=== PATIENT | male | born 1990 | race Caucasian/White ===

== ENCOUNTER 2023-11-17 10:32 | Outpatient (AMB) | payer OTHER, SELFPAY ==
[2023-11-17 10:33] VITALS: BP 116/78; PULSE 62; O2SAT 98; BMI 30.5
--- NOTE | 2023-11-17 10:33 | A.OFFPC_ITS ---
Vital Signs 11/17/23 10:33 Height 6 ft Weight 225 lb BMI 30.5 BP 116/78 Blood Pressure Location Rt brachial Position Sitting Pulse 62 Pulse Source Pulse Oximeter Pulse Oximetry (%) 98 Oxygen Delivery Method Room Air Intake Visit Reasons: PE Intake Note: pt here for annual PE. Allergies No Known Allergies Allergy (Verified 11/17/23 10:48) Medication List - Last Reconciled 11/17/23 by LALA Majano finasteride 5 mg PO DAILY minoxidil 1.25 mg PO DAILY sildenafil (Viagra) 25 mg PO DAILY PRN Tobacco use date assessed: 11/17/23 Dental Screening Dental Screen Date: 11/17/23 Did you have a dental visit in the last 12 months?: Yes Did you have a dental problem in the last 6 months where you did not have access to dental care?: No Was dental information given to patient?: Patient has dentist HPI HPI Comments History of Present Illness Details Patient is a 33-year-old male in today for a physical exam I am meeting him for the 1st time today. Will order fasting labs. Tdap is up-to-date. Has a past medical history significant for Atypical skin moles-has establish care with Dermatology. [facility] Surgical History History of removal of cyst Family History Father No problems noted. Mother No problems noted. Paternal Grandfather No problems noted. 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 00235 - PHQ-9 Billing: Patient declined-do not bill Source: Developed by Drs. Hugo Mclean, Fiorella Adams, Jay Cid and colleagues, with an educational kristofer from [employer]. AUDIT C Alcohol Use Questionnaire (AUDIT-C) 1. How often do you have a drink containing alcohol?: 2-4 times a month 2. How many drinks containing alcohol do you have on a typical day when you are drinking?: 1 or 2 3. How often do you have six or more drinks on one occasion?: Never Total Score: 2 LELA-7 AMB Questionnaire LELA-7 Assessment Billing LELA-7 Assessment Tool: pt declined-do not bill Review of Systems Const All systems reviewed & are unremarkable except as noted in HPI and below Physical exam (Primary Care) Vital Signs: Last Vital Signs Pulse 62 11/17/23 10:33 BP 116/78 11/17/23 10:33 Pulse Ox 98 11/17/23 10:33 Oxygen Delivery Method Room Air 11/17/23 10:33 Care Plan Goal for BP management: Blood pressure is controlled. BMI result Body Mass Index 30.5 Tobacco/Smoking Status: Tobacco use Status Tobacco use date assessed 11/17/23 11/17/23 10:42 Patient Tobacco Use Status Never used Tobacco 11/17/23 10:42 e-Cigarette/Vaping Use Never Used 11/17/23 10:42 Const Other: Appearance: Alert.? Oriented X3.? No acute distress.? Head: Normocephalic, atraumatic, no step-offs or deformities Eyes: Pupils equal, round and reactive to light.? ENT: Pharynx normal.?Full ROM. Neck: Normal inspection.? Neck supple.? CVS: Normal heart rate and rhythm.? Pulses normal.? Respiratory: No respiratory distress.? Breath sounds normal.? Abdomen: Soft and nontender.? : Testes normal. No hernia. Skin: Skin warm and dry.? Normal skin color.? Normal skin turgor.? Extremities: No lower extremity edema. 5/5 strength to bilateral upper and lower extremities Back: No midline tenderness, no C-spine tenderness, full range of motion, no CVA tenderness bilaterally Neuro: Oriented X 3.? No motor deficit.? No sensory deficit. CN 2-12 intact Assessment and Plan Assessment & Plan (1) Physical exam: Comment: Will draw fasting labs. Code(s): Z00.00 - Encounter for general adult medical examination without abnormal findings (2) Multiple atypical skin moles: Comment: Patient has [facility] care [facility] for skin checks. Code(s): D22.9 - Melanocytic nevi, unspecified (3) Hair loss: Comment: Patient using online service for medication for hair loss including finasteride, sildenafil, and minoxadil. Code(s): L65.9 - Nonscarring hair loss, unspecified Plan: draw labs Plan Follow-up 1 year physical exam Orders: Orders Vitamin B12 Today Z13.21 - Encounter for screening for nutritional disorder Comprehensive Met. Panel Today Z91.89 - Other specified personal risk factors, not elsewhere classified Complete Blood Count Auto Diff Today Z13.0 - Encounter for screening for diseases of the blood and blood-forming organs and certain disorders involving the immune mechanism Vitamin D 25-OH (D2 and D3) Today Z13.21 - Encounter for screening for nutritional disorder Vitamin B6 Today Z13.21 - Encounter for screening for nutritional disorder UA CC w/rflx Micro + Cult Today Z13.89 - Encounter for screening for other disorder TSH reflex Free T4 Today Z13.29 - Encounter for screening for other suspected endocrine disorder Lipid Panel Today Z13.220 - Encounter for screening for lipoid disorders Coding Level of Care Code Est Pt Prev Care 18-39y(29789) Diagnoses Physical exam Z00.00 Multiple atypical skin moles D22.9 Hair loss L65.9 Time Spent (min) 24
== END 2023-11-17 11:05 | disposition home or self-care (01) ==
PROVIDERS: PCP Nurse Practitioner Primary Care; Visit Provider Nurse Practitioner Primary Care
DX: Z00.00 Encounter for general adult medical examination without abnormal findings (principal); D22.9 Melanocytic nevi, unspecified; L65.9 Nonscarring hair loss, unspecified
CPT/HCPCS: 99395

== ENCOUNTER 2023-11-20 08:04 | Outpatient (REF) | payer OTHER, SELFPAY ==
[2023-11-20 08:22] LABS: MANUAL DIFF FLAG NO
[2023-11-20 08:30] LABS: Basophils Percent Auto 0.4 % (0-2); Eosinophils Absolute Auto 0.1 X10*3/uL (0.0-0.4); Eosinophils Percent Auto 2.4 % (0-4); Hematocrit 43.2 % (42.0-52.0); Imm Gran Abs Auto 0.01 X10*3/uL (0.00-0.03); Imm Gran Pct Auto 0.2 % (0.0-0.4); Lymphocytes Absolute Auto 1.7 X10*3/uL (1.2-4.9); Lymphocytes Percent Auto 30.9 % (20-40); Mean Corpuscular HGB Conc 34.7 g/dl (31.0-36.0); Mean Corpuscular Hemoglobin 31.4 pg (27.0-33.0); Mean Corpuscular Volume 90.6 fL (80.0-98.0); Mean Platelet Volume 8.9 fL (9.4-12.4); Monocytes Absolute Auto 0.4 X10*3/uL (0.1-1.2); Monocytes Percent Auto 7.7 % (2-11); Neutrophils Absolute Auto 3.2 x10*3/uL (2.0-8.3); Neutrophils Percent Auto 58.4 % (45-73); Platelet Count 198 X10*3/uL (160-400); Red Blood Count 4.77 X10*6/uL (4.60-5.80); Red Cell Distribution Width 12.7 % (11.0-16.0); White Blood Count 5.4 X10*3/uL (4.8-10.8)
[2023-11-20 09:24] LABS: Alanine Aminotransferase 32 U/L (0-40); Albumin Level 4.7 g/dL (3.5-5.0); Alkaline Phosphatase 70 U/L (39-117); Anion Gap 12 (12-20); Aspartate Amino Transferase 16 U/L (5-37); Bilirubin Total 0.3 mg/dL (0.0-1.0); Blood Urea Nitrogen 17 mg/dL (9-16); Calcium 9.5 mg/dL (8.4-10.2); Carbon Dioxide 25 mmol/L (22-29); Chloride 108 mmol/L (96-108); Cholesterol 199 mg/dL (<200); Estimated Glomerular Filt Rate > 60; Glucose Random 97 mg/dL (60-115); HDL Cholesterol 55 mg/dL (>40); LDL Cholesterol Calculated 130 mg/dL (<100); Potassium 4.4 mmol/L (3.3-5.1); Sodium 141 mmol/L (135-145); Total Protein 7.6 g/dL (6.5-8.0); Triglycerides 71 mg/dL (<150)
[2023-11-20 09:28] LABS: TSH reflex Free T4 1.54 uIU/mL (0.32-4.0)
[2023-11-20 09:41] LABS: Appearance Urine Clear; Color Urine Yellow; Glucose Urine UA Negative (Negative); Leukocyte Esterase Urine Negative (Negative); Nitrite Urine Negative (Negative); PH 5.5 (5.0-9.0); Specific Gravity - Urine >= 1.030 (1.005-1.025); Urine Blood Negative (Negative); Urine Ketones Negative (Negative); Urine Protein Negative (Neg-Trace)
[2023-11-20 09:49] LABS: Vitamin B12 344 pg/mL (200-900)
[2023-11-25 12:08] LABS: Vitamin D 25-OH, D2 <4 ng/mL; Vitamin D 25-OH, D3 20 ng/mL; Vitamin D 25-OH, Total 20 ng/mL (30-100)
[2023-11-27 14:33] LABS: Vitamin B6 26.5 ng/mL (2.1-21.7)
== END 2023-11-20 08:05 | disposition home or self-care (01) ==
LOC: HO.LAB 08:04
PROVIDERS: PCP Nurse Practitioner Family; Visit Provider Nurse Practitioner Primary Care
DX: Z13.21 Encounter for screening for nutritional disorder (principal); Z91.89 Other specified personal risk factors, not elsewhere classified; Z13.220 Encounter for screening for lipoid disorders; Z13.0 Encounter for screening for diseases of the blood and blood-forming organs and certain disorders involving the immune mechanism; Z13.89 Encounter for screening for other disorder; Z13.29 Encounter for screening for other suspected endocrine disorder
CPT/HCPCS: 36415; 80053; 80061; 81003; 82306; 82607; 84207; 84443; 85025

== ENCOUNTER 2024-01-13 11:23 | Outpatient (AMB) | payer OTHER, SELFPAY ==
--- NOTE | 2024-01-13 11:29 | MHC.OFFWIV ---
Intake Vital Signs 01/13/24 11:30 Height 6 ft Weight 225 lb BMI 30.5 BP 122/78 Blood Pressure Location Lt brachial Position Standing Pulse 74 Pulse Source Pulse Oximeter Temp 98.3 F Temp Source Oral Pulse Oximetry (%) 98 Oxygen Delivery Method Room Air Intake Visit Reasons: possible slipped disk Intake Note: pt c/o back pain. Unknown cause. Started yesterday morning Patient Tobacco Use Status: Never used Tobacco Allergies No Known Allergies Allergy (Verified 01/13/24 11:29) Do you need a note to return to daycare/school/sports/work: No HPI possible slipped disk HPI Details This note is constructed using voice recognition software. While every effort has been made to ensure accuracy, bridge toll collector errors may have been included. The patient is a 33 year old male who presents to the clinic today with back pain. Reports the pain to be a crossed his lumbar region making it difficult for him to sit or even want to walk. He notes that he has had intermittent low back pain for several years, but it typically resolves with the use of Tylenol at home, which is different from this as it has not resolved despite use of Tylenol for the past day. He denies any new injury, or different use or overuse of the area. He has never had surgery to the area. Denies loss of control of bowel or bladder. Initially had pain going down his right leg when he was in the shower yesterday and in his lumbar region, but that pain down the right leg seemed to resolve on its own. He denies numbness and tingling. [facility] Surgical History History of removal of cyst Family History Father No problems noted. Mother No problems noted. Paternal Grandfather No problems noted. 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[employer] Current occupational exposures/hazards: No Cognitive needs: No Hearing needs: No Vision needs: Yes Review of Systems Const All systems reviewed & are unremarkable except as noted in HPI and below Physical Exam Vital Signs: Last Vital Signs Temp 98.3 F 01/13/24 11:30 Pulse 74 01/13/24 11:30 BP 122/78 01/13/24 11:30 Pulse Ox 98 01/13/24 11:30 Oxygen Delivery Method Room Air 01/13/24 11:30 BMI result Body Mass Index 30.5 Const General: cooperative, healthy appearing, comfortable, no acute distress and alert Orientation/consciousness: patient oriented x3 Limitations: no limitations Resp Effort & Inspection: normal respiratory effort and able to speak in complete sentences Auscultation: clear to auscultation bilaterally Cardio Jugular venous distension: no JVD Palpation: normal PMI Rate: regular rate Heart sounds: S1 normal heart sound present, S2 normal heart sound present, no click, no gallops, no murmurs and no rubs General: Yes no CVA tenderness Back/Spine/Pelvis Other: Tender to palpation along entire bilateral lumbar region. Increased muscle bulging over right lumbar region. Reduced lateral rotation due to pain and forward bend due to pain. Positive SLR on right, negative well SLR. Intact distal neurovascular exam. Back: no CVA tenderness Skin General skin exam: no rashes or lesions noted, elasticity normal and turgor normal Neuro General: patient oriented x3 Extrem General: Yes normal to inspection, Yes full ROM, Yes capillary refill normal and Yes normal exam except as noted Psych Appearance: grossly normal Mental Status: mental status grossly normal Speech and movement: Normal speech and movement present Affect: normal affect Assessment & Plan Assessment & Plan (1) Lumbar strain: Code(s): S39.012A - Strain of muscle, fascia and tendon of lower back, initial encounter Qualifiers: Encounter type: initial encounter Qualified Code(s): S39.012A - Strain of muscle, fascia and tendon of lower back, initial encounter Plan: History and physical examination consistent with lumbar strain. Advised use of NSAIDs and muscle relaxers as well as muscle rubs to help reduce the pain. Home exercise program suggested or sciatica given positive SLR. Prescribed ibuprofen and cyclobenzaprine as discussed in visit today. Advised patient to avoid use of muscle relaxer during the daytime or when planning to drive. Advised patient to follow up with primary care provider with worsening or failure to resolve. Discussed how he may benefit from physical therapy with ongoing symptoms, however it is unlikely that he will need that at this time given the acute nature of the injury. Plan See above for full details and plan. Medications: New ibuprofen 800 mg PO Q8H 3 days PRN 9 tabs 0RF pain cyclobenzaprine 10 mg PO BEDTIME 3 days PRN 3 tabs 0RF muscle spasm Coding Level of Care Code Est Pt Level 3 (80546) Diagnoses Strain of lumbar region, initial encounter S39.012A Encounter type: initial encounter
[2024-01-13 11:30] VITALS: BP 122/78; PULSE 74; TEMP 36.8; O2SAT 98; BMI 30.5
== END 2024-01-13 12:09 | disposition home or self-care (01) ==
PROVIDERS: PCP Nurse Practitioner Family; Visit Provider Registered Nurse
DX: S39.012A Strain of muscle, fascia and tendon of lower back, initial encounter (principal)
CPT/HCPCS: 99213

== ENCOUNTER 2024-12-19 08:25 | Outpatient (AMB) | payer OTHER, SELFPAY ==
[2024-12-19 08:32] VITALS: BP 118/78; PULSE 55; O2SAT 98; BMI 30.8
--- NOTE | 2024-12-19 08:32 | MHC.PC.OV ---
Vital Signs 12/19/24 08:32 Height 6 ft Weight 227 lb BMI 30.8 BP 118/78 Blood Pressure Location Lt brachial Position Sitting Pulse 55 Pulse Source Pulse Oximeter Pulse Oximetry (%) 98 Oxygen Delivery Method Room Air Intake Visit Reasons: PE Intake Note: pt here for annual PE. Gasoline Locomotive Crane Operator Required: No Accompanied by: Self / Same As Patient Allergies No Known Allergies Allergy (Verified 12/19/24 08:32) Tobacco use date assessed: 12/19/24 Dental Screening Dental Screen Date: 12/19/24 Did you have a dental visit in the last 12 months?: Yes Did you have a dental problem in the last 6 months where you did not have access to dental care?: No Was dental information given to patient?: Patient has dentist HPI PE HPI Details History of Present Illness The patient is a 34-year-old male presenting for follow-up of physical exam and management of headaches. He reports experiencing tension headaches that originate in the occipital region and radiate upwards, as well as migraines that begin behind the eyes and around the orbitals, radiating posteriorly. These migraines have been a persistent issue for years and are reportedly worsening. The patient is unable to tolerate Excedrin and finds NSAIDs harsh on his stomach. For preventative measures, he will start riboflavin B2 in the morning and magnesium at night, with a referral to neurology as requested. In terms of dermatological health, the patient has multiple nevi on his back and maintains regular dermatology appointments for monitoring. on medication for hair loss. Health Maintenance Social History Review of Systems - General: Reports fever, chills - Respiratory: Reports dyspnea - Gastrointestinal: Reports abdominal pain, hematochezia, constipation, diarrhea - Neurological: Reports tension headaches and migraines - Psychiatric: Denies suicidal ideation or homicidal ideation Physical Exam General: Cooperative, healthy appearing, comfortable, no acute distress and well developed Orientation: Patient oriented x3 Limitations: No limitations Head: Normal to inspection Ears: Hearing grossly normal bilaterally Nose: Normal external nose present Face and sinus: Normal facial exam Eyes: Appearance normal, both eyes and all related structures Neck: Normal visual inspection and Yes full ROM Respiratory: Normal respiratory effort and able to speak in complete sentences. Clear to auscultation bilaterally Cardiovascular: Regular rate and rhythm. Normal S1 and S2 GI: Normal to inspection. Soft to palpation and nontender : testicles without masses/lesions and no hernias appreciated Skin: Multiple moles noted on the back Neuro: Patient oriented x3, cn2-12 intact Extremities: Normal to inspection Results labs were entered Plan The patient will begin a preventative regimen for migraines, including riboflavin B2 in the morning and magnesium at night. A referral to neurology has been made to further evaluate and manage the worsening migraine condition. The patient is advised to continue regular dermatology visits for monitoring of multiple nevi on his back. [facility] Surgical History History of removal of cyst Family History Father No problems noted. Mother No problems noted. Paternal Grandfather No problems noted. 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 1. Little interest or pleasure in doing things: not at all 2. Feeling down, depressed, or hopeless: not at all 3. Trouble falling or staying asleep, or sleeping too much: not at all 4. Feeling tired or having little energy: not at all 5. Poor appetite or overeating: not at all 6. Feeling bad about yourself - or that you are a failure or have let yourself or your family down: not at all 7. Trouble concentrating on things, such as reading the newspaper or watching television: not at all 8. Moving or speaking so slowly that other people could have noticed. Or the opposite - being so fidgety or restless that you have been moving around a lot more than usual: not at all 9. Thoughts that you would be better off or of hurting yourself in some way: not at all Total score: 0 Depression Screening Interpretation: Negative Depression Screening Done: Yes 71675 - PHQ-9 Billing: Yes Source: Developed by Fiorella Carbajal Bryan, Jay Cid and colleagues, with an educational kristofer from [employer]. Thrive Questionnaire Date Thrive assessed: 12/19/24 I am a: Patient What is your living situation today?: I choose not to answer this question Within the past 12 months, did the food you bought not last and you didn't have the money to get more?: I choose not to answer this question Within the past 12 months, did you worry whether your food would run out before you got money to buy more?: I choose not to answer this question Do you have trouble paying for medicines?: I choose not to answer this question Do you have trouble getting transportation to medical appointments?: I choose not to answer this question Do you have trouble paying your heating and electricity bill?: I choose not to answer this question Do you have trouble taking care of your child, family member or friend?: I choose not to answer this question Do you have trouble with day-to-day activities such as bathing, preparing meals, shopping, managing finances, etc.?: I choose not to answer this question Are you currently unemployed and looking for a job?: I choose not to answer this question Are you interested in more education?: I choose not to answer this question Please select the resources that you would like help with: None Currently or been in a relationship where the following occur: I choose not to answer THRIVE Score: 0 AUDIT C Alcohol Use Questionnaire (AUDIT-C) 1. How often do you have a drink containing alcohol?: 2-4 times a month 2. How many drinks containing alcohol do you have on a typical day when you are drinking?: 1 or 2 3. How often do you have six or more drinks on one occasion?: Never Total Score: 2 Score Reviewed/Action Taken: Yes LELA-7 AMB Questionnaire LELA-7 Date LELA - 7 assessed: 12/19/24 Feeling nervous, anxious, or on edge: 0 = Not at all Not being able to stop or control worryin = Not at all Worrying too much about different things: 0 = Not at all Trouble relaxin = Not at all Being so restless that it is hard to sit still: 0 = Not at all Becoming easily annoyed or irritable: 0 = Not at all Feeling afraid as if something awful might happen: 0 = Not at all Total LELA-7 score (0-4 normal; 5-9 mild; 10-14 moderate; 15-21 severe): 0 Source: Developed by Drs. Hugo Mclean, Fiorella Adams, Jay Cid and colleagues, with an educational kristofer from [employer]. LELA-7 Assessment Billing LELA-7 Assessment Tool: LELA-7 Assessment 88313 Physical exam (Primary Care) Vital Signs: Last Vital Signs Pulse 55 12/19/24 08:32 BP 118/78 12/19/24 08:32 Pulse Ox 98 12/19/24 08:32 Oxygen Delivery Method Room Air 12/19/24 08:32 BMI result Body Mass Index 30.8 Tobacco/Smoking Status: Tobacco use Status Tobacco use date assessed 12/19/24 12/19/24 08:34 Patient Tobacco Use Status Never used Tobacco 12/19/24 08:34 e-Cigarette/Vaping Use Never Used 12/19/24 08:34 PHQ-9: PHQ-9 Score PHQ-9: Total score 0 12/19/24 08:40 Depression Screening Interpretation: Negative Thrive Assessment: Date of Thrive Assessment Date Thrive assessed 12/19/24 12/19/24 08:34 Currently or been in a relationship where the following occur: I choose not to answer Coding Level of Care Code Est Pt Level 3 (25780) Est Pt Prev Care 18-39y(44766) Diagnoses Physical exam Z00.00 Multiple atypical skin moles D22.9 Migraines G43.909 Additional Codes LELA-7 Assessment Billing - LELA-7 Assessment Tool: LELA-7 Assessment 47407 ([id number]) PHQ-9 - 84005 - PHQ-9 Billing: Yes ([id number]) Assessment & Plan Assessment & Plan (1) Physical exam: Comment: Will draw fasting labs. Code(s): Z00.00 - Encounter for general adult medical examination without abnormal findings Category: Medical (2) Multiple atypical skin moles: Comment: Patient has [facility] care [facility] for skin checks. Code(s): D22.9 - Melanocytic nevi, unspecified Category: Medical (3) Migraines: Code(s): G43.909 - Migraine, unspecified, not intractable, without status migrainosus Category: Medical Plan . Orders: Orders Complete Blood Count Auto Diff Today Z00.00 - Encounter for general adult medical examination without abnormal findings TSH reflex Free T4 Today Z00.00 - Encounter for general adult medical examination without abnormal findings UA CC w/rflx Micro + Cult Today Z00.00 - Encounter for general adult medical examination without abnormal findings Lipid Panel Today Z00.00 - Encounter for general adult medical examination without abnormal findings Comprehensive [place]. Panel Fast Today Z00.00 - Encounter for general adult medical examination without abnormal findings
== END 2024-12-19 09:12 | disposition home or self-care (01) ==
LOC: HO.HMCC 08:26
PROVIDERS: PCP Nurse Practitioner Family; Visit Provider Nurse Practitioner Family
DX: Z00.00 Encounter for general adult medical examination without abnormal findings (principal); G43.909 Migraine, unspecified, not intractable, without status migrainosus; D22.9 Melanocytic nevi, unspecified

== ENCOUNTER → 2024-12-19 08:25 | Outpatient (BNVA) | payer OTHER, SELFPAY | PROVIDERS: PCP Nurse Practitioner Family; Visit Provider Nurse Practitioner Family | DX: Z00.00 Encounter for general adult medical examination without abnormal findings (principal); G43.909 Migraine, unspecified, not intractable, without status migrainosus; D22.9 Melanocytic nevi, unspecified | CPT/HCPCS: 96127 ==